=== PATIENT | male | born 1970 | race Two or more races ===

== ENCOUNTER 2025-10-26 14:14 | Inpatient (IN) | payer MEDICAID ==
[~2025-10-26] VITALS: Ht 167.6 cm; Wt 94.8 kg
[~2025-10-26 14:14] MED LIST: DULO60CA73 PO; MELA5TAB21 PO; MIRT-89 PO; MULT-1303 PO; NALT50TA33 PO
[2025-10-26 15:13] LABS: PLATELET COUNT (AUTO) 181 K/uL (150-450); RED BLOOD CELL COUNT(AUTO) 4.85 MIL/uL (4.50-5.90); RED CELL DISTRIBUTION WIDTH 13.0 % (11.5-14.5); WHITE BLOOD COUNT (AUTO) 6.7 K/uL (4.5-11.0)
[2025-10-26 15:19] LABS: CALCIUM, TOTAL 8.7 mg/dL (8.8-10.5); CREATININE 0.82 mg/dL (0.60-1.30); GLOMERULAR FILTR. RATE CALC > 60 mL/min (>60); GLUCOSE,RANDOM 113 mg/dL (70-110); SODIUM SERUM 139 mmol/L (136-145); UREA NITROGEN, BLOOD 15 mg/dL (7-18)
[2025-10-26 15:32] LABS: COVID AG,FIA SOURCE NASAL SWAB
[2025-10-26 16:35] LABS: SARS-COV2 (COVID) ANTIGEN,FIA Negative (Negative)
[2025-10-26 16:56] LABS: APPEARANCE,URINE CLEAR (CLEAR); GLUCOSE, URINE (UA) NEGATIVE (NEGATIVE); LEUKOCYTE ESTERASE ,URINE LARGE (NEGATIVE); NITRATE,URINE NEGATIVE (NEGATIVE); OCCULT BLOOD,URINE NEGATIVE (NEGATIVE); PH,URINE DRUG SCREEN 6.0 (5.0-8.0); SPECIFIC GRAVITIY, URINE 1.021 (1.003-1.030)
[2025-10-26 17:03] LABS: AMPHET/METH SCREEN,URINE NEGATIVE (NEGATIVE); BARBITURATE SCREEN, URINE NEGATIVE (NEGATIVE); CANNABINOID SCREEN,URINE NEGATIVE (NEGATIVE); COCAINE SCREEN,URINE NEGATIVE (NEGATIVE); METHADONE SCREEN, URINE NEGATIVE (NEGATIVE)
[2025-10-26 17:31] LABS: ALCOHOL, URINE DRUG SCREEN NEGATIVE (NEGATIVE)
[2025-10-26 17:39] LABS: SQUAMOUS EPITHELIAL CELL,UR Few /LPF (None Seen)
[2025-10-26 19:53] VITALS: O2SAT 97
[2025-10-26] MEDS: ZOLPIDEM TARTRATE 10 MG TABLET PO PRN (21:16)
[2025-10-26 21:24] VITALS: BP 119/106; PULSE 68; RESP 18; TEMP 98.2; O2SAT 95
[2025-10-27 08:16] VITALS: BP 121/96; PULSE 100; RESP 18; TEMP 98.8; O2SAT 97
[2025-10-27 09:17] LABS: ASPARTATE AMINOTRANSFERASE 27 U/L (15-37); CALCIUM, TOTAL 8.8 mg/dL (8.8-10.5); CHOL/HDL RATIO 4.5 (4.2-7.3); CREATININE 0.80 mg/dL (0.60-1.30); GLOMERULAR FILTR. RATE CALC > 60 mL/min (>60); GLUCOSE,RANDOM 122 mg/dL (70-110); SODIUM SERUM 142 mmol/L (136-145); TOTAL PROTEIN, SERUM 7.7 g/dL (6.4-8.2); UREA NITROGEN, BLOOD 13 mg/dL (7-18)
[2025-10-27 09:36] LABS: LDL CHOL (CALC.) 118 mg/dL (0-130)
[2025-10-27] MEDS: DULoxetine HCL 60 MG CAPSULE PO SCH (11:50)
[2025-10-27 20:40] VITALS: BP 116/79; PULSE 69; RESP 17; TEMP 98; O2SAT 98
[2025-10-27] MEDS: MIRTAZAPINE 15 MG TABLET PO SCH (20:57)
[2025-10-28 08:20] VITALS: BP 122/94; PULSE 97; RESP 18; TEMP 98.3; O2SAT 97
[2025-10-28 20:14] VITALS: BP 119/82; PULSE 97; RESP 19; TEMP 97.7; O2SAT 98
[2025-10-29 08:24] VITALS: BP 116/95; PULSE 100; RESP 18; TEMP 99; O2SAT 98
== END 2025-10-29 16:29 | disposition home or self-care (01) | DRG 750 ==
LOC: EMS 14:21 → UNDOADMIN 18:18 → B2S 18:18
PROVIDERS: ADMIT Psychiatry & Neurology Child & Adolescent Psychiatry; ATTEND Psychiatry & Neurology Child & Adolescent Psychiatry
PROC: GZ56ZZZ Individual Psychotherapy, Supportive (ICD-10-PCS; principal; 2025-10-27)
DX: F20.9 Schizophrenia, unspecified (principal); R45.851 Suicidal ideations; F10.10 Alcohol abuse, uncomplicated; Z20.822 Contact with and (suspected) exposure to COVID-19; R73.9 Hyperglycemia, unspecified; F41.9 Anxiety disorder, unspecified; G47.00 Insomnia, unspecified
CPT/HCPCS: 80048; 80053; 80061; 80307; 81001; 83036; 84439; 84443; 85025; 87086; G0480